=== PATIENT | female | born 1940 | race Caucasian/White ===

== ENCOUNTER → 2025-01-14 | Outpatient (CLI) | payer MEDICARE ==
[~2025-01-14] MED LIST: IOHEXOL 350 MG/ML 100ML INFUS..BTL IV ONE
--- NOTE | 2025-01-15 07:35 | HMCIMG ---
EXAM: CT Cardiac Angiogram. CLINICAL HISTORY: Shortness of breath. TECHNIQUE: Thin collimated axial CT cardiac angiogram images were obtained. A CT scan is done according to ALARA (As Low As Reasonably Achievable). COMPARISON: None provided. FINDINGS: Coronary CT Angiography: Dominance of the coronary artery system: Right Left Main: There is a small focus of eccentric calcification at the origin of the left main artery, causing mild narrowing of up to 25%. The left main gives rise to the LAD, ramus intermedius, and circumflex arteries. Left Anterior Descending Artery /T/ Diagonals: Small eccentric calcification at the origin of the left anterior descending artery, causing mild narrowing of up to 25%. A 6 mm eccentric calcified plaque in the proximal left anterior descending artery just before giving off the D1 branch and causing moderate narrowing of up to 50%. The first diagonal branch has no stenosis or plaques. The mid and distal LAD appear normal. LAD is a type II vessel. Ramus intermedius: There is a thin ramus intermedius. Left Circumflex Artery /T/ Obtuse Marginals: The left circumflex artery and its obtuse marginal branches (OM1) have no stenosis or plaques. Limited evaluation of the posterolateral branches likely arising from the left circumflex artery. Right Coronary Artery: The right coronary artery and acute marginal are normal in course and show no plaques or stenosis. RCA is a dominant artery. The right posterior descending artery has no stenosis or plaques. Cardiac Morphology:Both atria and ventricles are normal. The mitral valve leaflets are normal. The pericardium is normal, and there is no pericardial effusion. The aortic valve is tricuspid. The visualized thoracic aorta is normal in course and caliber. Extracardiac findings:The visualised pulmonary arteries appear normal in caliber. The visualised lung parenchyma is unremarkable. The included portion of the upper abdomen appears normal. IMPRESSION: Coronary artery disease as described. CADRADS 3. Right Dominant Circulation. /[place]
== END | disposition home or self-care (01) ==
LOC: RAH 07:50
PROVIDERS: ATTEND Internal Medicine Cardiovascular Disease
DX: I25.10 Atherosclerotic heart disease of native coronary artery without angina pectoris (principal); R06.02 Shortness of breath
CPT/HCPCS: 75574; Q9967